=== PATIENT | female | born 1995 | race Two or more races ===

== ENCOUNTER → 2023-03-17 | Outpatient (CLI) | payer MEDICAID ==
[2023-03-17 16:48] LABS: Basophils # (auto) 0.1 10 ^3/uL (0-0.2); Basophils % (auto) 0.5 % (0.0-2.0); Eosinophils # (auto) 0.1 10 ^3/uL (0-0.8); Hematocrit 41.1 % (36.0-46.0); Hemoglobin 13.7 g/dL (12.2-16.2); Lymphocytes # (auto) 2.9 10 ^3/uL (0.4-5.4); Lymphocytes % (auto) 26.1 % (10.0-50.0); Mean Corpuscular Hemoglobin 31.3 pg (28.0-32.0); Mean Corpuscular Hgb Conc. 33.5 g/dL (32.0-36.0); Mean Corpuscular Volume 93.7 fL (80.0-100.0); Monocytes # (auto) 0.7 10 ^3/uL (0-1.3); Monocytes % (auto) 6.4 % (0.0-12.0); Neutrophils # (auto) 7.3 10 ^3/uL (1.6-8.6); Red Blood Cells 4.38 10^6/uL (4.0-5.20); Red Cell Distribution Width 12.9 % (11.8-14.3); White Blood Cell 11.1 10^3/uL (4.4-10.8)
[2023-03-17 17:08] LABS: Amphetamine Screen, Urine Neg (NEGATIVE); Barbiturate Scree,Urine Neg (NEGATIVE); Benzodiazephine Screen, Urine Neg (NEGATIVE); Cannabinoid Screen, Urine Neg (NEGATIVE); Cocaine Screen, Urine Neg (NEGATIVE); Opiate Scree,Urine Neg (NEGATIVE); Phencyclidine Screen, Urine Neg (NEGATIVE)
[2023-03-17 17:14] LABS: Thyroid Stimulating Hormone 0.77 uIU/mL (0.358-3.74)
[2023-03-18 08:06] LABS: Varicella Zoster IgG Antibody 1069 index (Immune >165)
[2023-03-18 13:06] LABS: RPR Non Reactive (Non Reactive)
== END | disposition home or self-care (01) ==
LOC: LAB 16:02
PROVIDERS: ATTEND Obstetrics & Gynecology
DX: Z34.80 Encounter for supervision of other normal pregnancy, unspecified trimester (principal); Z31.430 Encounter of female for testing for genetic disease carrier status for procreative management; Z36.0 Encounter for antenatal screening for chromosomal anomalies; N39.0 Urinary tract infection, site not specified; Z3A.00 Weeks of gestation of pregnancy not specified
CPT/HCPCS: 36415; 80307; 84443; 84702; 85025; 86592; 86703; 86708; 86762; 86787; 86850; 86900; 86901; 87086; 87340

== ENCOUNTER 2023-08-28 13:30 | Observation (INO) | payer MEDICAID ==
[2023-08-28] MEDS ORDERED: PREN1TAB71 OR (15:33)
== END 2023-08-28 16:05 | disposition home or self-care (01) ==
LOC: UNDOADMOB 14:13 → LDRP 14:13
PROVIDERS: ADMIT Obstetrics & Gynecology; ATTEND Obstetrics & Gynecology
DX: Z36.89 Encounter for other specified antenatal screening (principal); Z3A.32 32 weeks gestation of pregnancy; Z87.59 Personal history of other complications of pregnancy, childbirth and the puerperium
CPT/HCPCS: 59025; 76818; 81002; G0378

== ENCOUNTER 2023-08-30 12:29 | Observation (INO) | payer MEDICAID ==
[~2023-08-30] VITALS: Ht 154 cm; Wt 64.9 kg
[~2023-08-30 12:29] MED LIST: PREN1TAB71 OR
[2023-08-30] MEDS: TERBUTALINE SULFATE 1 MG/ML 1ML VIAL SC SCH (14:41)
[2023-08-30] MEDS: BETAMETHASONE ACET (30mg/5ml) 5ml Vial 6mg/ml IM ONE (14:51)
[2023-08-30] MEDS ORDERED: NIF10C PO (15:46)
[2023-08-30] MEDS ORDERED: PREN1TAB71 PO (15:46)
[2023-08-30 16:08] LABS: Urine Bacteria None Seen /hpf (None Seen); Urine WBC None Seen /hpf (0 - 5)
[2023-08-30 16:16] LABS: Urine Blood Negative /uL (Negative); Urine Clarity Clear (Clear); Urine Color Colorless (Yellow); Urine Protein, UAD Negative (Negative); Urine Specific Gravity 1.009 (1.001-1.035); Urine Urobilinogen Normal (Negative)
[2023-08-30 16:18] LABS: Vaginal Trichomonas Not Present
[2023-08-30 16:19] LABS: Vaginal Bacteria Few
[2023-08-30 16:20] LABS: Vaginal Clue Cells Few; Vaginal Epithelial Cells Few
[2023-08-30] MEDS: NIFEdipine 10 MG CAP PO ONE (16:22)
[2023-08-30] MEDS ORDERED: METR-344 PO (17:03)
[2023-08-30] MEDS: LACTATED RINGER'S 1,000 ML IV ONE (17:41)
[2023-08-30] MEDS ORDERED: BETAMETHASONE ACET (30mg/5ml) 5ml Vial 6mg/ml IM SCH (22:00)
== END 2023-08-30 18:10 | disposition home or self-care (01) ==
LOC: LDRP 12:29 → UNDOADMOB 12:29 → LDRP 12:51
PROVIDERS: ADMIT Obstetrics & Gynecology; ATTEND Obstetrics & Gynecology
DX: O62.9 Abnormality of forces of labor, unspecified (principal); Z87.59 Personal history of other complications of pregnancy, childbirth and the puerperium; Z3A.34 34 weeks gestation of pregnancy
CPT/HCPCS: 59025; 76818; 81001; 81002; 87210; 96372; G0378; J0702; J3105

== ENCOUNTER 2023-08-31 15:10 | Observation (INO) | payer MEDICAID ==
[~2023-08-31 15:10] MED LIST changes: +METR-344 PO; +NIF10C PO; -PREN1TAB71 OR; +PREN1TAB71 PO
[2023-08-31] MEDS: BETAMETHASONE ACET (30mg/5ml) 5ml Vial 6mg/ml IM ONE (15:57)
== END 2023-08-31 16:29 | disposition home or self-care (01) ==
LOC: UNDOADMOB 15:10 → LDRP 15:10
PROVIDERS: ADMIT Obstetrics & Gynecology; ATTEND Obstetrics & Gynecology
DX: O60.03 Preterm labor without delivery, third trimester (principal); Z3A.34 34 weeks gestation of pregnancy
CPT/HCPCS: 59025; 81002; G0378; J0702; 96372

== ENCOUNTER 2023-09-07 11:06 | Observation (INO) | payer MEDICAID | END 2023-09-07 12:28 | disposition home or self-care (01) | LOC: UNDOADMOB 11:06 → LDRP 11:06 | PROVIDERS: ADMIT Obstetrics & Gynecology; ATTEND Obstetrics & Gynecology | DX: O60.03 Preterm labor without delivery, third trimester (principal); Z3A.35 35 weeks gestation of pregnancy; Z87.59 Personal history of other complications of pregnancy, childbirth and the puerperium | CPT/HCPCS: 59025; 76818; 81002; 94760; G0378 ==

== ENCOUNTER 2023-09-11 11:32 | Observation (INO) | payer MEDICAID | END 2023-09-11 14:23 | disposition home or self-care (01) | LOC: UNDOADMOB 12:50 → LDRP 12:50 | PROVIDERS: ADMIT Obstetrics & Gynecology; ATTEND Obstetrics & Gynecology | DX: O60.03 Preterm labor without delivery, third trimester (principal); Z87.59 Personal history of other complications of pregnancy, childbirth and the puerperium; Z3A.35 35 weeks gestation of pregnancy | CPT/HCPCS: 59025; 76818; 81002; G0378 ==

== ENCOUNTER 2023-09-14 09:36 | Observation (INO) | payer MEDICAID | END 2023-09-14 11:20 | disposition home or self-care (01) | LOC: UNDOADMOB 09:36 → LDRP 09:36 | PROVIDERS: ADMIT Obstetrics & Gynecology; ATTEND Obstetrics & Gynecology | DX: Z34.83 Encounter for supervision of other normal pregnancy, third trimester (principal); Z87.59 Personal history of other complications of pregnancy, childbirth and the puerperium; Z3A.36 36 weeks gestation of pregnancy | CPT/HCPCS: 59025; 76818; 81002; 94760; G0378 ==

== ENCOUNTER 2023-09-18 15:02 | Observation (INO) | payer MEDICAID | END 2023-09-18 19:51 | disposition home or self-care (01) | LOC: LDRP 15:02 → UNDOADMOB 15:02 → LDRP 15:33 → UNDODISOB 19:51 | PROVIDERS: ADMIT Obstetrics & Gynecology; ATTEND Obstetrics & Gynecology | DX: O60.03 Preterm labor without delivery, third trimester (principal); Z3A.36 36 weeks gestation of pregnancy; Z98.891 History of uterine scar from previous surgery; Z87.59 Personal history of other complications of pregnancy, childbirth and the puerperium | CPT/HCPCS: 59025; 76818; 81002; 94760; G0378 ==

== ENCOUNTER 2023-09-21 12:00 | Observation (INO) | payer MEDICAID ==
[~2023-09-21] VITALS: Ht 154 cm; Wt 68.5 kg
[~2023-09-21 12:00] MED LIST changes: -METR-344 PO; -NIF10C PO
== END 2023-09-21 13:48 | disposition home or self-care (01) ==
LOC: LDRP 12:00 → UNDOADMOB 12:00 → LDRP 12:32
PROVIDERS: ADMIT Obstetrics & Gynecology; ATTEND Obstetrics & Gynecology
DX: O36.4XX0 Maternal care for intrauterine death, not applicable or unspecified (principal); O69.81X0 Labor and delivery complicated by cord around neck, without compression, not applicable or unspecified; Z3A.37 37 weeks gestation of pregnancy
CPT/HCPCS: 59025; 76818; 81002; 94760; G0378

== ENCOUNTER 2023-09-28 10:23 | Inpatient (IN) | payer MEDICAID ==
[~2023-09-28] VITALS: Ht 154 cm; Wt 72.6 kg
[2023-09-28 12:24] LABS: Basophils # (auto) 0 10 ^3/uL (0-0.2); Eosinophils # (auto) 0.1 10 ^3/uL (0-0.8); Hemoglobin 10.9 g/dL (12.2-16.2)
[2023-09-28 12:26] LABS: Basophils % (auto) 0.5 % (0.0-2.0); Hematocrit 34.6 % (36.0-46.0); Lymphocytes # (auto) 2.5 10 ^3/uL (0.4-5.4); Lymphocytes % (auto) 25.9 % (10.0-50.0); Mean Corpuscular Hemoglobin 24.6 pg (28.0-32.0); Mean Corpuscular Hgb Conc. 31.5 g/dL (32.0-36.0); Mean Corpuscular Volume 78.1 fL (80.0-100.0); Monocytes # (auto) 0.9 10 ^3/uL (0-1.3); Monocytes % (auto) 9.6 % (0.0-12.0); Neutrophils # (auto) 6.2 10 ^3/uL (1.6-8.6); Nucleated Red Blood Cells % 0.3 %; Red Blood Cells 4.43 10^6/uL (4.0-5.20); Red Cell Distribution Width 17.4 % (11.8-14.3); White Blood Cell 9.8 10^3/uL (4.4-10.8)
[2023-09-28 12:44] LABS: Alanine Aminotransferase 15 U/L (7-40); Albumin 3.5 g/dL (3.2-4.8); Alkaline Phosphatase 185 U/L (46-116); Anion Gap 9 (5-15); Aspartate Aminotransferase 22 U/L (13-40); Bilirubin, Total 0.4 mg/dL (0.2-1.0); Blood Urea Nitrogen 6 mg/dL (9-23); Carbon Dioxide 20 mmol/L (20-30); Chloride 106 mmol/L (98-107); Glucose 97 mg/dL (74-106); Potassium 3.8 mmol/L (3.5-5.1); Sodium 135 mmol/L (136-145); Total Protein 6.1 g/dL (5.7-8.2)
[2023-09-28 12:57] LABS: INR 0.92 (0.9-1.15); Partial Thromboplastin Time 26.6 SEC (24.5-34.5); Prothrombin Time 9.8 sec (9.3-11.8)
[2023-09-28 13:26] LABS: Amphetamine Screen, Urine Neg (NEGATIVE); Barbiturate Scree,Urine Neg (NEGATIVE); Benzodiazephine Screen, Urine Neg (NEGATIVE); Cannabinoid Screen, Urine Neg (NEGATIVE); Cocaine Screen, Urine Neg (NEGATIVE); Opiate Scree,Urine Neg (NEGATIVE); Phencyclidine Screen, Urine Neg (NEGATIVE)
[2023-09-28] MEDS: MAGNESIUM SULFATE 1GM/100ML 100 ML IV ONE (13:40)
[2023-09-28 14:48] LABS: Urine Bacteria FEW /hpf (None Seen); Urine Blood Negative /uL (Negative); Urine Clarity Clear (Clear); Urine Color Light-Yellow (Yellow); Urine Protein, UAD Negative (Negative); Urine Specific Gravity 1.005 (1.001-1.035); Urine Urobilinogen Normal (Negative); Urine WBC 1 /hpf (0 - 5)
[2023-09-28] MEDS: MAGNESIUM SULFATE 1GM/100ML 100 ML IV SCH (17:54)
[2023-09-29] VITALS (16 sets, daily range): BP systolic 90–115; BP diastolic 46–78; PULSE 67–91; RESP 16; TEMP 97.7–98.4; O2SAT 16–100
[2023-09-29] MEDS: LACTATED RINGER'S 1,000 ML IV SCH (01:49)
[2023-09-29 08:06] LABS: RPR Non Reactive (Non Reactive)
[2023-09-29] MEDS ORDERED: MORPHINE SULF PF 5 MG/10 ML VIAL ONE (10:15)
[2023-09-29] MEDS: ceFAZolin 2 GM/D5W50ml 50 ML IV ONE (10:16)
[2023-09-29] MEDS ORDERED: ePHEDrine SULFATE 50 MG/ML AMP ONE (10:56)
[2023-09-29] MEDS ORDERED: ONDANSETRON HCL 4 MG/2 ML VIAL ONE (10:56)
[2023-09-29] MEDS ORDERED: GLYCOPYRROLATE 0.2 MG/ML 1ML VIAL ONE (11:10)
[2023-09-29] MEDS ORDERED: oxyTOCIN 10 UNIT/ML 10ML VIAL ONE (11:11)
[2023-09-29] MEDS ORDERED: DexAMETHasone SOD PHOS 10MG/1ML VIAL INJ IV PRN (12:15)
[2023-09-29] MEDS ORDERED: NALOXONE HCL 0.4 MG/ML VIAL IV PRN (12:15)
[2023-09-29] MEDS ORDERED: MEPERIDINE HCL (25 MG/ML) 1ML VIAL IV PRN (12:15)
[2023-09-29] MEDS ORDERED: diphenhdrAMINE HCL 50 MG/1 ML VL IV PRN (12:15)
[2023-09-29] MEDS ORDERED: HYDROmorphone HCL 2 MG/ML VL/or syr IV PRN ×2 (12:15)
[2023-09-29] MEDS ORDERED: KETOROLAC TROMETH 30 MG/ML 1ML VIAL IV PRN (12:15)
[2023-09-29] MEDS: LACTATED RINGER'S 1,000 ML IV ONE (12:31)
[2023-09-29] MEDS: ONDANSETRON HCL 4 MG/2 ML VIAL IV ONE (17:19)
[2023-09-29] MEDS: NALBUPHINE HCL 10 MG/1ml INJECTION SUBCUT ONE (17:20)
[2023-09-29] MEDS: ONDANSETRON HCL 4 MG/2 ML VIAL IV PRN (20:19)
[2023-09-30] VITALS (15 sets, daily range): BP systolic 87–113; BP diastolic 47–72; PULSE 68–101; RESP 16–18; TEMP 98–99.2; O2SAT 91–98
[2023-09-30] MEDS ORDERED: BISACODYL 10 MG RECT SUPP PR PRN (06:15)
[2023-09-30 06:56] LABS: Basophils # (auto) 0 10 ^3/uL (0-0.2); Basophils % (auto) 0.3 % (0.0-2.0); Eosinophils # (auto) 0 10 ^3/uL (0-0.8); Eosinophils % (auto) 0.2 % (0.0-7.0); Monocytes # (auto) 1.2 10 ^3/uL (0-1.3)
[2023-09-30 06:58] LABS: Hematocrit 26.3 % (36.0-46.0); Hemoglobin 8.4 g/dL (12.2-16.2); Lymphocytes # (auto) 1.6 10 ^3/uL (0.4-5.4); Lymphocytes % (auto) 10.9 % (10.0-50.0); Mean Corpuscular Hemoglobin 24.8 pg (28.0-32.0); Mean Corpuscular Hgb Conc. 31.8 g/dL (32.0-36.0); Mean Corpuscular Volume 77.9 fL (80.0-100.0); Monocytes % (auto) 8.2 % (0.0-12.0); Neutrophils # (auto) 11.7 10 ^3/uL (1.6-8.6); Neutrophils % (auto) 80.4 % (37.0-80.0); Nucleated Red Blood Cells % 0.1 %; Red Blood Cells 3.37 10^6/uL (4.0-5.20); Red Cell Distribution Width 17.4 % (11.8-14.3); White Blood Cell 14.6 10^3/uL (4.4-10.8)
[2023-09-30] MEDS: DOCUSATE CALCIUM 240 MG CAP PO SCH (08:07)
[2023-09-30] MEDS: DOCUSATE SOD 100 MG CAP PO SCH (08:08)
[2023-09-30] MEDS: FERROUS SULFATE 325mg EC TAB PO SCH (08:08)
[2023-09-30] MEDS: HYDROcodone-ACET 5/325MG TAB PO PRN ×2 (08:09→13:18)
[2023-09-30] MEDS: SIMETHICONE 80 MG CHEWABLE TABLET PO SCH (12:22)
[2023-09-30] MEDS: IBUPROFEN 800 MG TAB PO PRN (20:01)
[2023-09-30] MEDS: SODIUM CHLORIDE 0.9% 1,000 ML IV SCH (23:51)
[2023-09-30] MEDS: LACTATED RINGER'S 1,000 ML IV SCH (23:51)
[2023-09-30] MEDS: D5W/LACTATED RINGERS 1,000 ML IV SCH (23:52)
[2023-10-01 03:16] VITALS: BP 104/58; PULSE 77; RESP 16; TEMP 98.2; O2SAT 98
[2023-10-01 07:15] VITALS: BP 109/69; PULSE 75; RESP 15; TEMP 98.4; O2SAT 96
[2023-10-01] MEDS ORDERED: DOCU-94 PO (09:04)
[2023-10-01] MEDS ORDERED: HYDR-4902 PO (09:04)
[2023-10-01] MEDS ORDERED: IBUP-1456 PO (09:04)
[2023-10-01 11:10] VITALS: BP 104/67; PULSE 78; RESP 15; TEMP 98.5; O2SAT 100
[2023-10-02 19:06] LABS: Treponema pallidum Ab (FTA-Ab) Non Reactive (Non Reactive)
[2023-10-03 01:06] LABS: Rubella Antibodies, IgG 1.3 index (Immune >0.99)
== END 2023-10-01 14:34 | disposition home or self-care (01) | DRG 539 ==
LOC: LDRP 10:23 → UNDOADMOB 10:23 → LDRP 10:33 → OBSVTOIN 16:10 → LDRP 09-29 11:28
PROVIDERS: ADMIT Obstetrics & Gynecology; ATTEND Obstetrics & Gynecology
PROC: 0UB70ZZ Excision of Bilateral Fallopian Tubes, Open Approach (ICD-10-PCS; 2023-09-29)
PROC: 10D00Z1 Extraction of Products of Conception, Low, Open Approach (ICD-10-PCS; principal; 2023-09-29 10:47)
DX: O34.211 Maternal care for low transverse scar from previous cesarean delivery (principal); O99.42 Diseases of the circulatory system complicating childbirth; O69.81X0 Labor and delivery complicated by cord around neck, without compression, not applicable or unspecified; O76 Abnormality in fetal heart rate and rhythm complicating labor and delivery; O99.284 Endocrine, nutritional and metabolic diseases complicating childbirth; I49.3 Ventricular premature depolarization; E83.42 Hypomagnesemia; Z3A.38 38 weeks gestation of pregnancy; Z37.0 Single live birth; Z30.2 Encounter for sterilization
CPT/HCPCS: 36415; 59025; 76818; 80053; 80307; 81001; 81002; 83735; 84443; 85025; 85610; 85730; 86592; 86703; 86706; 86708; 86762; 86803; 86850; 86900; 86901; 93306; 94760; 94762; 96360; 96361; 96365; 96366; 96374; G0378; J2405; J2590